=== PATIENT | female | born 1995 | race Caucasian/White ===

== ENCOUNTER 2016-12-07 14:11 | Emergency (ER) | payer OTHER ==
[~2016-12-07] VITALS: Ht 167.6 cm; Wt 127.3 kg
[~2016-12-07 14:11] MED LIST: DOCU-41 PO; FAMO20T PO; IBUP800T28 PO; ONDA8TAB10 PO
[2016-12-07 14:13] VITALS: BP 134/76; PULSE 109; RESP 20; O2SAT 97
[2016-12-07 15:15] LABS: Mean Corpuscular Hemoglobin 28.9 pg (27.0-35.0)
[2016-12-07 15:18] LABS: BASOPHILS % (AUTO) 0.2 % (0-3); EOSINOPHILS % (AUTO) 2.1 % (0-5); MONOCYTES % (AUTO) 5.3 % (4-12); Mean Corpuscular Volume 84.6 fL (81-100); NEUTROPHILS % (AUTO) 61.6 % (40-74); Platelet Count 321 bil/L (150-400)
[2016-12-07 16:18] LABS: Magnesium 1.9 mg/dL (1.6-2.6)
[2016-12-07 18:12] VITALS: BP 114/69; PULSE 98; O2SAT 97
--- NOTE | 2016-12-07 18:31 | ED.REPORT ---
HPI-Abd Pain F Under 40 Date of Service Dec 07, 2016 ED Provider: Connor Hu MD Pt is an otherwise healthy 21 year old female who presents to the ED complaining of intermittent upper abdominal pain onset 2 months ago. She c/o associated diarrhea (5x daily typically), nausea, lightheadedness, dizziness, and emesis when burping. The pt describes her emesis as "acid and chunky." She denies diarrhea today, hematochezia, and melena. The pt reports that she has presented to the [facility] for her symptoms and was diagnosed with acid reflux, however she was unable to get her prescription due to losing the paperwork. The pt denies menstruation, reporting that she takes control that prevents it. She states that no one else at home has diarrhea. Nursing Notes Stated Complaint: DIARRHEA,STOMACH PAIN,LIGHT HEADED,DIZZY,VOMITING Chief Complaint: Female Abdominal Pain Nursing Notes Reviewed: Yes Allergies: Coded Allergies: No Known Allergies (Verified Allergy, Unknown, 10/24/15) Scheduled Famotidine (Pepcid) 20 Mg Tablet 20 MG PO BID Omeprazole (Omeprazole) 20 Mg Capsule.dr 20 MG PO BID Scheduled PRN Docusate Sodium (Colace) 100 Mg Capsule 100 MG PO BID PRN PRN For Constipation Ibuprofen (Ibuprofen) 800 Mg Tablet 800 MG PO Q6H PRN PRN For Pain Ondansetron ODT (Ondansetron ODT) 8 Mg Tab.rapdis 8 MG PO QID PRN PRN For Nausea General Time Seen by MD: 18:21 Chief Complaint Abdominal pain Hx Obtained From: Patient Arrived By: Walk-in Onset Occurred: More than a week ago... (2 months) Symptom Duration: Intermittent Location: : Abdomen upper Quality: Painful Radiation: : Does not radiate Severity: Current: Moderate Severity: Maximum: Moderate Recent Healthcare: Recent doctor visit Similar Sx Previous: Yes Past Medical History Past Medical History anxiety Reports: Asthma Reports: Depression Past Surgical History T&A Smoking History Former Smoker Social History Alcohol Use: "Social" Drug Use: Denies drug use Other Social History: Good social support, Lives with children Ambulatory Status Independent Review of Systems GI: Reports: Abdominal pain, Diarrhea, Nausea, Vomiting, Denies: Hematochezia, Melena Complete sys rev & neg: except as marked. Neurologic: Reports: Dizziness, Lightheaded Physical Exam Initial Vital Signs Vital Signs (First) Date Time Temp Pulse Resp B/P Pulse Ox O2 Delivery O2 Flow Rate FiO2 12/07/16 14:13 36.3 109 20 134/76 97 Room Air Initial VS: Reviewed Head / Eyes: Atraumatic, Normocephalic Extremities: Vascular intact, Neuro intact Skin: Warm, Dry, No cyanosis Neurologic: Alert, Oriented Psychiatric: Mood/affect normal, Behavior normal General/Constitutional: Awake, Alert Respiratory / Chest: Atraumatic, Breath sounds NL, Breath sounds = bilat Cardiovascular: Heart rate NL, Regular rhythm Abdomen: Atraumatic, Soft, Non-tender, BS normoactive Back: Atraumatic, Full range of motion Rectum / Perineum: Atraumatic No blood present. Interpretation & Diagnostics Lab Results Interpretation Result Diagram: 12/07/16 1508 12/07/16 1508 Test 12/07/16 15:08 12/07/16 18:14 White Blood Count 8.4th/mm3 (3.8-10.1) Red Blood Count 4.56mil/mm3 (3.90-5.20) Hemoglobin 13.2g/dL (12.0-15.6) Hematocrit 38.6% (35.0-46.0) Mean Corpuscular Volume 84.6fL (81-100) Mean Corpuscular Hemoglobin 28.9pg (27.0-35.0) Mean Corpuscular Hemoglobin Concent 34.2% (32.0-37.0) Red Cell Distribution Width 13.0% (12.3-15.4) Platelet Count 321bil/L (150-400) Neutrophils (%) (Auto) 61.6% (40-74) Lymphocytes (%) (Auto) 30.6% (14-46) Monocytes (%) (Auto) 5.3% (4-12) Eosinophils (%) (Auto) 2.1% (0-5) Basophils (%) (Auto) 0.2% (0-3) Sodium Level 143mEq/L (134-144) Potassium Level 4.5mEq/L (3.5-5.2) Chloride Level 106mEq/L (97-108) Carbon Dioxide Level 24mmol/L (18-29) Blood Urea Nitrogen 11mg/dL (6-20) Creatinine 0.51mg/dL (0.57-1.00) Estimat Glomerular Filtration Rate 218mL/min (>59) Glucose Level 127mg/dL (60-99) Calcium Level 9.5mg/dL (8.5-10.1) Magnesium Level 1.9mg/dL (1.6-2.6) Total Bilirubin 0.5mg/dL (0.0-1.2) Aspartate Amino Transf (AST/SGOT) 14U/L (0-50) Alanine Aminotransferase (ALT/SGPT) 17U/L (0-32) Alkaline Phosphatase 83U/L (25-150) Total Protein 6.9g/dL (6.4-8.4) Albumin 4.5g/dL (3.4-5.0) Lipase 20U/L (13-60) Hold Urine Received (Received) US Abdominal Aorta IMPRESSION: Cholelithiasis and borderline gallbladder wall thickening however no other sonographic criteria for acute cholecystitis. Please correlate clinically and with LFTs. Coarse echogenic liver suggesting diffuse hepatocellular disease/fatty infiltration. Dictated by: Ang Santos M.D. on 12/07/2016 at 20:42 Exam Performed by: ED physician Re-Eval/Medical Decision Med Decision/Clinical Course Med Decision/Clinical Course: looks well, pain now better. Mild tachycardia at triage resolved. Source of Hx: Old records Re-Evaluation/Progress : Time of Eval: 20:15 Re-Evaluation/Progress Note: Pt rechecked. Performed rectal exam with pt's consent. Informed pt of plan for discharge. Pt understands and agrees with plan for discharge. F/U instructions and RTER warnings given. All questions addressed Counseled Regarding: Diagnosis, Lab results, Need for follow-up, When/why to return to ED Discharge & Departure Primary Impression: Epigastric abdominal pain Additional Impression: Biliary colic Disposition: Home Discharge Condition All VS Reviewed: Yes Condition: Stable Patient Instructions: Biliary Colic (ED) Additional Instructions: ED evaluation today included interview exam and labs. We did an ultrasound that showed gallstones, these may be the cause of your intermittent abdominal pain. Follow up with general surgery for consideration of gallbladder surgery. Take protonix twice daily in case this is acid reflux. Follow up with primary care soon also. May use tylenol as needed for pain. Ibuprofen will make reflux worse, don't use it. Avoid rich or fatty foods- this will increase gallbladder pain. Return to ED for severe pain, fevers or frequent vomiting. Referrals: Quentin Hunt MD (PCP) Cb Dickson MD Attestation Portions of this note were transcribed by Nicole Cortes. I, Dr. Hu personally performed the history, physical exam and medical decision-making; I reviewed and confirmed the accuracy of the information in the transcribed note. Signed by : David Moura, 12/07/16. copies to: Quentin Hunt MD, Donald L MD Dec 07, 2016 18:31 Nicole Mckeon Dec 07, 2016 18:39
[2016-12-07] MEDS ORDERED: OMEP20CA11 PO (20:22)
[2016-12-07 20:40] VITALS: BP 122/71; PULSE 90; RESP 16; O2SAT 99
--- NOTE | 2016-12-07 20:45 | DRSVH ---
PROCEDURE: US ABDOMEN, LIMITED ([id number]) INDICATIONS: epigastric pain , eval for gallstone disease TECHNIQUE: Real-time focused scanning was performed of the abdomen, with image documentation. COMPARISON: None. FINDINGS: Liver measures 17 cm in length. There is coarse diffuse echotexture in keeping with diffuse fatty infiltration. No intrahepatic ductal dilatation is seen. 1.9 cm gallstone is present. There is borderline gallbladder wall thickening measuring 3-4 mm. No pericholecystic or sonographic Valero si gn. No extrahepatic ductal dilatation. The pancreas is unremarkable. IMPRESSION: Cholelithiasis and borderline gallbladder wall thickening however no other sonographic criteria for a cute cholecystitis. Please correlate clinically and with LFTs. Coarse echogenic liver suggesting diffuse hepatocellular disease/fatty infiltration. Dictated by: Ang Santos M.D. on 12/07/2016 at 20:42 Approved by: Ang Santos M.D. on 12/07/2016 at 20:44
--- NOTE | 2016-12-08 09:42 | PCM.EDPN ---
ED Note Date of Service Dec 08, 2016 The patient's stool PCR came back for enteropathogenic Escherichia coli as well as C. difficile. The Escherichia coli will be treated symptomatically and the patient will have a prescription for Flagyl called in to treat her C. difficile infection. Mercedez Graves MD Dec 08, 2016 09:42
== END 2016-12-07 20:41 | disposition home or self-care (01) ==
LOC: SED 14:11
DX: K80.50 Calculus of bile duct without cholangitis or cholecystitis without obstruction (principal); A04.0 Enteropathogenic Escherichia coli infection; A04.7 Enterocolitis due to Clostridium difficile; J45.909 Unspecified asthma, uncomplicated; F41.8 Other specified anxiety disorders; Z87.891 Personal history of nicotine dependence

== ENCOUNTER 2016-12-11 11:01 | Day surgery (SDC) | payer OTHER ==
[~2016-12-11] VITALS: Ht 167.6 cm; Wt 127.3 kg
[2016-12-11] VITALS (11 sets, daily range): BP systolic 127–157; BP diastolic 67–92; PULSE 65–103; RESP 11–18; O2SAT 92–99
[~2016-12-11 11:01] MED LIST changes: +OMEP20CA11 PO
[2016-12-11] MEDS ORDERED: 0.9% Sodium Chloride 1,000 ML IV ONE (11:29)
--- NOTE | 2016-12-11 11:29 | ED.REPORT ---
HPI-Abd Pain F Under 40 Date of Service Dec 11, 2016 ED Provider: Steve Durand PA-C Stefan is otherwise healthy 21-year-old female presenting to emergency Department with a chief complaint of right upper quadrant pain. Patient reports sudden onset of a half over 10 pain in her right upper quadrant approximately one hour ago while she was talking on the phone, associated with nausea, dizziness. Denies , vomiting, diarrhea, melena, hematochezia, fever. See 3 days ago in this department reporting a 2 month history of intermittent abdominal pain associated with diarrhea, nausea, lightheadedness, dizziness. Workup at that time revealed gallstones as well as a stool culture positive for Escherichia coli and C. difficile, for which she was prescribed Flagyl, which she began taking today. Patient has appointment to be seen by GI on December 19. She is unsure of what she had for breakfast. Nursing Notes Stated Complaint: GALLBLADDER Chief Complaint: Female Abdominal Pain Nursing Notes Reviewed: Yes Allergies: Coded Allergies: No Known Allergies (Verified Allergy, Unknown, 10/24/15) Scheduled Famotidine (Pepcid) 20 Mg Tablet 20 MG PO BID Omeprazole (Omeprazole) 20 Mg Capsule.dr 20 MG PO BID Scheduled PRN Docusate Sodium (Colace) 100 Mg Capsule 100 MG PO BID PRN PRN For Constipation Ibuprofen (Ibuprofen) 800 Mg Tablet 800 MG PO Q6H PRN PRN For Pain Ondansetron ODT (Ondansetron ODT) 8 Mg Tab.rapdis 8 MG PO QID PRN PRN For Nausea General Time Seen by MD: 11:11 Chief Complaint Abdominal pain Past Medical History Past Medical History Notes: She is seen emergently, December 07, ultrasound positive for cholelithiasis and borderline thickened gallbladder wall, with outpatient surgical follow-up planned at that time for biliary colic Past Medical History anxiety Cholelithiasis diagnosed 12/07/2016 Reports: Asthma Reports: Depression Past Surgical History T&A Smoking History Former Smoker Social History Alcohol Use: "Social" Drug Use: Denies drug use Other Social History: Good social support, Lives with children Ambulatory Status Independent Review of Systems Review of Systems Note: Negative unless stated otherwise in history of present illness Physical Exam General: Well appearing, well developed, well nourished, no acute distress. Head: Atraumatic, normocephalic. Eyes: No scleral icterus or injection. No discharge. Vision grossly intact. ENT: Voice clear, hearing grossly intact. Respiratory: Regular rate and rhythm. No respiratory distress. No increased work of breathing, speaks in complete sentences. Cardiovascular: Regular rate and rhythm, without murmur, gallop or rub. No pedal edema. Gastrointestinal: Obese abdomen mild to moderately tender in right upper quadrant without rebound. Negative Valero sign. Bowel sounds normoactive. Skin: Warm and dry. Neurological: Grossly nonfocal. Psychological: Alert and oriented. Speech appropriate, linear and logical. Behavior appropriate. Initial Vital Signs Vital Signs (First) Date Time Temp Pulse Resp B/P Pulse Ox O2 Delivery O2 Flow Rate FiO2 12/11/16 11:03 36.8 103 14 137/85 99 Room Air Mild tachycardia Interpretation & Diagnostics Interpretation & Diagnostics: See recent ultrasound 12/07/2016 Lab Results Interpretation Result Diagram: 12/11/16 1129 12/11/16 1129 Test 12/11/16 11:29 12/11/16 12:35 White Blood Count 7.6th/mm3 (3.8-10.1) Red Blood Count 4.55mil/mm3 (3.90-5.20) Hemoglobin 13.2g/dL (12.0-15.6) Hematocrit 38.6% (35.0-46.0) Mean Corpuscular Volume 84.8fL (81-100) Mean Corpuscular Hemoglobin 29.0pg (27.0-35.0) Mean Corpuscular Hemoglobin Concent 34.2% (32.0-37.0) Red Cell Distribution Width 13.2% (12.3-15.4) Platelet Count 279bil/L (150-400) Neutrophils (%) (Auto) 62.6% (40-74) Lymphocytes (%) (Auto) 28.4% (14-46) Monocytes (%) (Auto) 6.1% (4-12) Eosinophils (%) (Auto) 2.5% (0-5) Basophils (%) (Auto) 0.1% (0-3) Sodium Level 140mEq/L (134-144) Potassium Level 4.0mEq/L (3.5-5.2) Chloride Level 106mEq/L (97-108) Carbon Dioxide Level 19mmol/L (18-29) Blood Urea Nitrogen 8mg/dL (6-20) Creatinine 0.49mg/dL (0.57-1.00) Estimat Glomerular Filtration Rate 228mL/min (>59) Glucose Level 103mg/dL (60-99) Calcium Level 8.7mg/dL (8.5-10.1) Total Bilirubin 0.4mg/dL (0.0-1.2) Aspartate Amino Transf (AST/SGOT) 18U/L (0-50) Alanine Aminotransferase (ALT/SGPT) 18U/L (0-32) Alkaline Phosphatase 74U/L (25-150) Total Protein 7.0g/dL (6.4-8.4) Albumin 4.0g/dL (3.4-5.0) Lipase 22U/L (13-60) Urine Color Straw (YELLOW) Urine Appearance Hazy (CLEAR,HAZY) Urine pH 5.5 (5.0-8.0) Urine Specific [place] 1.020 (1.003-1.035) Urine Protein Negativemg/dL (NEG,TRACE) Urine Glucose (UA) Negativemg/dL (NEGATIVE) Urine Ketones Negativemg/dL (NEGATIVE) Urine Occult Blood Negative (NEGATIVE) Urine Nitrite Negative (NEGATIVE) Urine Bilirubin Negative (NEGATIVE) Urine Urobilinogen Normalmg/dL (NORMAL) Urine Leukocyte Esterase Trace (NEGATIVE) Urine RBC 0-2/hpf (0-2) Urine WBC 0-5/hpf (0-5) Urine Epithelial Cells Occasional/hpf (NONE-MOD) Urine Crystals None seen (NONE SEEN) Urine Bacteria Moderate/hpf (NONE-FEW) Urine Hyaline Casts None/lpf (NONE) Urine Granular Casts None seen (NONE SEEN) Urine Waxy Casts None seen (NONE SEEN) Urine Red Blood Cell Casts None seen (NONE SEEN) Urine White Blood Cell Casts None seen (NONE SEEN) Urine Mucus None seen (None Seen) Urine Trichomonas None seen (NONE SEEN) Urine Yeast None (NONE SEEN) Urinalysis Comment None Urine Culture Reflexed Indicated Lab Results Interpretation: CBC normal CMP normal Lipase normal negative Re-Eval/Medical Decision Med Decision/Clinical Course Otherwise healthy 21-year-old female presents to emergency department with right upper quadrant pain. Diagnosed roughly 3 days ago in this department with gallstones as well as C. difficile colitis. Patient reports sudden onset of right upper quadrant pain approximately one hour ago, associated with nausea and dizziness. She also reports initiating treatment with Flagyl today. Denies other symptoms. Physical examination reveals mild tachycardia as well as mild right upper quadrant pain without Valero sign. Otherwise normal. Labs drawn for CBC, CMP, lipase which returned normal. Consulted with Dr. Dickson, patient was seen by co founder and president, and was transferred to surgery from the emergency department in stable condition. Source of Hx: Old records Consultation #1: Referral / Consult Name: Cb Dickson MD Call Returned at: 11:39 [employer] Plant Manager: Will see patient Consultation #2: Consulted With: Surgeon (Dr. Lange) Call Returned at: 13:27 Note: Patient was seen and assessed, will be taken to day surgery directly from the emergency department. No additional treatment in emergency Department is requested. Differential Diagnosis: Positive: Cholecystitis, Cholelithiasis, Negative: Acute coronary syndrome, Appendicitis, Cholangitis, Esophageal rupture, Pancreatitis, Pyelonephritis Discharge & Departure Primary Impression: Cholecystitis Referrals: Quentin Hunt MD (PCP) Attending Statment This is a patient initially seen by the mid-level provider, but I personally interviewed and examined the patient. I reviewed the radiographs and laboratory studies. This is a patient returns with, right upper quadrant pain with known cholelithiasis and is in significant discomfort. Surgeries consult, came and saw the patient and is taking the patient to the OR for further management. Steve Durand PA-C Dec 11, 2016 11:29 Aleksandar Dorman MD Dec 11, 2016 13:47
[2016-12-11 12:36] LABS: BASOPHILS % (AUTO) 0.1 % (0-3); EOSINOPHILS % (AUTO) 2.5 % (0-5); MONOCYTES % (AUTO) 6.1 % (4-12); Mean Corpuscular Volume 84.8 fL (81-100); NEUTROPHILS % (AUTO) 62.6 % (40-74); Platelet Count 279 bil/L (150-400)
[2016-12-11 12:59] LABS: APPEARANCE,URINE HAZY (CLEAR,HAZY); COLOR,URINE STRAW (YELLOW); PH,URINE 5.5 (5.0-8.0)
[2016-12-11 13:00] LABS: OCCULT BLOOD,URINE NEGATIVE (NEGATIVE); UROBILINOGEN,URINE NORMAL (NORMAL)
[2016-12-11] MEDS ORDERED: Lactated Ringer's 1,000 ML IV ONE ×3 (13:32→18:30)
--- NOTE | 2016-12-11 13:32 | PCM.HPANE ---
Patient Data Surgeon Admitting Provider: Attending Provider: Primary Care Physician:Quentin Hunt MD Other Provider: Reason for Visit Gallbladder Ht/WT & BMI Height (Feet): 5 Height (Inches): 6 Weight (Kilograms): 127.27 Body Mass Index Allergies Coded Allergies: No Known Allergies (Verified Allergy, Unknown, 10/24/15) Diabetes History Hx Diabetes?: No MRSA MRSA: No Medications Active Scripts Omeprazole 20 Mg Capsule.dr20 Mg PO BID #60 CAPSULE Ref 0 Prov:Connor Hu MD 12/07/16 Docusate Sodium (Colace)100 Mg [id number] Mg PO BID PRN For Constipation #10 CAPSULE Ref 3 Prov:Luis A Branch MD 09/23/15 Ibuprofen 800 Mg Cozsis176 Mg PO Q6H PRN For Pain #20 TABLET Ref 3 Prov:Luis A Branch MD 09/23/15 Ondansetron ODT 8 Mg Tab.rapdis8 Mg PO QID PRN For Nausea #14 TABLET Prov:Stevan Hua MD 04/13/15 Famotidine (Pepcid)20 Mg [id number] Mg PO BID #30 TABLET Prov:Stevan Hua MD 04/13/15 History History of ENT Problems?: No Hx of Heart Problems?: No Cardiovascular History: Denies:: Chest Pain Congestive Heart Failure Hypertension Hx of Respiratory Problem?: Yes Respiratory History: Denies:: Tuberculosis Hx Neurologic Problems?: No Hx of GI Problems?: No Hx of Problems?: No HX of Peritoneal Dialysis: No Female Hx: Positive for:: Currently Skin History: Denies:: History Skin Disorders? Pressure Ulcers Hx Musculoskeletal Problems?: No Hx of Psycho/Social Problems?: Yes Psycho Social History: Positive for:: Bipolar Disorder Hx Surgeries?: Yes (T&A) Hx Any Other Health Problems?: No Hx Diabetes: No Hx Alcohol Use: NoHx Substance Use: No Smoking Status: Former Smoker Have You Smoked inLast 12 mo: Yes Stop/Bang Risk Assessment Category Category 1A: Patient has history of documented sleep apnea, and HAS NOT received any narcotic, sedative or anesthesia administration during this stay. Category 1B: Patient has history of documented sleep apnea, and HAS received any narcotic , sedative or anesthesia administration during this stay Category 2: Patient has SUSPECTED Obstructive Sleep Apnea, and HAS received any narcotic , sedative or anesthesia administration during this stay. Category 3: Patient has SUSPECTED Obstructive Sleep Apnea and HAS NOT received narcotic, sedative or anesthesia administration during this stay. Category 4: Outpatient in Procedural Areas with known sleep apnea or who screen positive for High Risk via the STOP/BANG questionnaire. Exam Exam Vital Signs Vital Signs Date Time Temp Pulse Resp B/P Pulse Ox O2 Delivery O2 Flow Rate FiO2 12/11/16 11:03 36.8 103 14 137/85 99 Room Air Meds/Labs/Diagnostics Admission Meds Current Medications Sodium Chloride (Normal Saline) 1,000 ml @ 0 mls/hr Q0M ONCE IV Last administered on 12/11/16 11:44; Start 12/11/16 at 11:29; Stop 12/11/16 at 11:31; Status DC Ondansetron HCl (Zofran ODT) 8 mg ONCE ONCE PO Last administered on 12/11/16 11:44; Start 12/11/16 at 11:30; Stop 12/11/16 at 11:31; Status DC Acetaminophen (Tylenol) 975 mg ONCE ONCE PO Last administered on 12/11/16 11: 44; Start 12/11/16 at 11:30; Stop 12/11/16 at 11:31; Status DC Labs Test 12/11/16 11:29 12/11/16 12:35 White Blood Count 7.6th/mm3 (3.8-10.1) Red Blood Count 4.55mil/mm3 (3.90-5.20) Hemoglobin 13.2g/dL (12.0-15.6) Hematocrit 38.6% (35.0-46.0) Mean Corpuscular Volume 84.8fL (81-100) Mean Corpuscular Hemoglobin 29.0pg (27.0-35.0) Mean Corpuscular Hemoglobin Concent 34.2% (32.0-37.0) Red Cell Distribution Width 13.2% (12.3-15.4) Platelet Count 279bil/L (150-400) Neutrophils (%) (Auto) 62.6% (40-74) Lymphocytes (%) (Auto) 28.4% (14-46) Monocytes (%) (Auto) 6.1% (4-12) Eosinophils (%) (Auto) 2.5% (0-5) Basophils (%) (Auto) 0.1% (0-3) Sodium Level 140mEq/L (134-144) Potassium Level 4.0mEq/L (3.5-5.2) Chloride Level 106mEq/L (97-108) Carbon Dioxide Level 19mmol/L (18-29) Blood Urea Nitrogen 8mg/dL (6-20) Creatinine 0.49mg/dL (0.57-1.00) Estimat Glomerular Filtration Rate 228mL/min (>59) Glucose Level 103mg/dL (60-99) Calcium Level 8.7mg/dL (8.5-10.1) Total Bilirubin 0.4mg/dL (0.0-1.2) Aspartate Amino Transf (AST/SGOT) 18U/L (0-50) Alanine Aminotransferase (ALT/SGPT) 18U/L (0-32) Alkaline Phosphatase 74U/L (25-150) Total Protein 7.0g/dL (6.4-8.4) Albumin 4.0g/dL (3.4-5.0) Lipase 22U/L (13-60) Urine Color Straw (YELLOW) Urine Appearance Hazy (CLEAR,HAZY) Urine pH 5.5 (5.0-8.0) Urine Specific [place] 1.020 (1.003-1.035) Urine Protein Negativemg/dL (NEG,TRACE) Urine Glucose (UA) Negativemg/dL (NEGATIVE) Urine Ketones Negativemg/dL (NEGATIVE) Urine Occult Blood Negative (NEGATIVE) Urine Nitrite Negative (NEGATIVE) Urine Bilirubin Negative (NEGATIVE) Urine Urobilinogen Normalmg/dL (NORMAL) Urine Leukocyte Esterase Trace (NEGATIVE) Urine RBC 0-2/hpf (0-2) Urine WBC 0-5/hpf (0-5) Urine Epithelial Cells Occasional/hpf (NONE-MOD) Urine Crystals None seen (NONE SEEN) Urine Bacteria Moderate/hpf (NONE-FEW) Urine Hyaline Casts None/lpf (NONE) Urine Granular Casts None seen (NONE SEEN) Urine Waxy Casts None seen (NONE SEEN) Urine Red Blood Cell Casts None seen (NONE SEEN) Urine White Blood Cell Casts None seen (NONE SEEN) Urine Mucus None seen (None Seen) Urine Trichomonas None seen (NONE SEEN) Urine Yeast None (NONE SEEN) Urinalysis Comment None Urine Culture Reflexed Indicated Plan Impression Patient chart reviewed, patient interviewed and anesthestic plan with risks, benefits, and alternatives discussed, and informed consent obtained. Willis Ayala MD Dec 11, 2016 13:32
[2016-12-11] MEDS ORDERED: HYDROmorphone 1 mg/mL Inj ONE (13:38)
[2016-12-11] MEDS ORDERED: Rocuronium 10 mg/mL 5 mL Inj ONE (13:38)
[2016-12-11] MEDS ORDERED: Ondansetron 2 mg/mL 2 mL Inj ONE (13:38)
[2016-12-11] MEDS ORDERED: Glycopyrrolate 0.2 MG/ML 1mL Inj ONE (13:38)
[2016-12-11] MEDS ORDERED: Succinylcholine Chloride 20 mg/mL 5 mL Inj ONE (13:38)
[2016-12-11] MEDS ORDERED: Propofol 10,000 mCg/mL 20 mL Inj ONE (13:38)
[2016-12-11] MEDS ORDERED: Dexamethasone 4 mg/mL Inj ONE (13:38)
[2016-12-11] MEDS ORDERED: fentaNYL-PF 50 mCg/mL 2 mL Inj ONE (13:38)
[2016-12-11] MEDS ORDERED: Neostigmine 1 mg/mL 10 mL Inj ONE (13:38)
[2016-12-11] MEDS ORDERED: HYDROmorphone 0.5 mg/0.5 mL iSecure Syringe IVPUSH PRN (13:50)
[2016-12-11] MEDS ORDERED: Ondansetron 2 mg/mL 2 mL Inj IVPUSH ONE (13:50)
--- NOTE | 2016-12-11 14:30 | PCM.HPSURG ---
Subjective Date of Service: Dec 11, 2016 Referring Provider: Admitting Physician: Primary Care Physician: Quentin Hunt MD Attending Physician: Cb Dickson MD Chief Complaint Abdominal pain History of Present Illness Ms. Carias is a 21 year old female with history of c.diff, asthma, and depression who presents with 2 months of intermittent RUQ pain. The patient reports that approximately 8 weeks ago she was seen in the [facility] ED after suddenly developing severe RUQ pain and nausea. Her symptoms improved with pain medications and she was not offered a diagnosis. Since that time, however, she has experienced increasingly more frequent and painful episodes of right upper quadrant abdominal pain. She describes that the pain is burning and sharp, localized only to RUQ without radiation, starts suddenly, lasts for several hours, and then resolves spontaneously. She describes a strong relation to food, noting that any PO intake seems to trigger an episode of pain , but sometimes the pain will start in the absence of PO intake. Even liquid intake seems to cause pain. She typically experiences nausea but denies any vomiting. She has had no associated fevers, chills, urinary changes, or jaundice. She presented to the ED 2 days ago with an episode of severe pain. An US demonstrated a 1.8 cm gallstone. The plan was made for follow up to discuss elective cholecystectomy in the outpatient setting. However, she returns today after developing 10/10 pain this morning, which she describes as one of her worst episodes. Of note, the patient has a history of c.diff diagnosed approximately 2 years ago after taking antibiotics for a UTI during her . She was treated, but has experienced intermittent diarrhea since then. For the past 3 weeks, however, she has had profuse diarrhea, reports >5 episodes of loose stools per day. She reiterates that she had numerous episodes of RUQ pain prior to the start of diarrhea. She also states her pain is distinctly different than the abdominal pain she experienced with c.diff at the time of her first diagnosis. She was found to be c.diff positive during her most recent ED visit and has been started on PO flagyl. She has not had an episode of loose stool for the past 48 hours. Allergy Allergies: Coded Allergies: No Known Allergies (Verified Allergy, Unknown, 10/24/15) Medications Home medications She takes an antidepressant daily, but cannot remember the name of this medication. Past Surgical History Operations: Tonsillectomy as a child Social History Occupation: [employer] member Hx Alcohol Use: Yes Hx Substance Use: No Hx Tobacco Use: Yes PMH HEENT History History of ENT Problems?: No Cardiovascular History History of Heart Problems?: No Cardiovascular History: Denies:: Chest Pain Congestive Heart Failure Hypertension Respiratory History of Respiratory Problem: Yes Respiratory History: Positive for:: Asthma Denies:: Tuberculosis Neurological History Hx Neurologic Problems?: No Gastrointestinal History HX of GI Problems?: No Genitourinary History Hx of Gu Problems?: No Female/Male History Reproductive History Female: Positive for: Currently ? Skin History Skin History: Denies:: History Skin Disorders? Pressure Ulcers Musculoskeletal History Hx Musculoskeletal Problems?: No Psycho Social History Hx of Psycho/Social Problems?: Yes Psycho Social History: Positive for:: Bipolar Disorder Hx Depression Other History Hx Any Other Health Problems?: No Diabetes: No Social History Hx Alcohol Use: NoHx Substance Use: No Smoking Status: Current Every Day Smoker (Smokes 1/2 ppd) Living Arrangement: with Family Family History Family History: The patient's mother had her gallbladder removed. There is no known family history of GI malignancy. H&P Surgical Exam Exam General: Alert, Oriented X3, Cooperative, No Acute Distress Neck: Supple, Full Range of Motion Lungs: Normal Air Movement Heart: Exam Unremarkable Abdomen: Other (Obese. Diffusely tender to deep palpation with the worst pain in the RUQ. Negative Peralta. No rebound or guarding. No incisions, hernias, or organomegaly appreciated. ) Extremities: Warm Neuro: Grossly Neurologically Intact Assessment & Plan Assessment This is a 21 year old female who presents with recurrent RUQ pain, found to have cholelithiasis and recurrent c.diff infection. At this time, her pain is most likely biliary in origin given the post-prandial nature of her symptoms, and the lack of association between her pain and the diarrhea. I do not think c.diff can explain her symptoms and RUQ tenderness. Therefore, we have recommended her gallbladder be removed. Plan: After a discussion of the risks, benefits, and alternatives, the patient has elected to proceed to the operating room for a cholecystectomy. She understands the risks including but not limited to bleeding, infection, damage to adjacent structure, need for an open procedure, and the potential untoward effects of anesthesia. She will remain NPO and we will proceed to the operating room today. London Lange MD Dec 11, 2016 14:29
[2016-12-11] MEDS ORDERED: Bupivacaine-MPF 0.5% 30 mL Inj INFILTRATE ONE (15:18)
[2016-12-11] MEDS ORDERED: Iopamidol-300 50 mL Inj IV ONE (15:18)
[2016-12-11] MEDS ORDERED: Lactated Ringer's 1,000 ML IV SCH (15:26)
[2016-12-11] MEDS ORDERED: Lactated Ringer's 500 ML IV PRN (15:26)
[2016-12-11] MEDS ORDERED: Albuterol-Ipratropium 3 mL Inhalation Solution NEB PRN (15:30)
[2016-12-11] MEDS ORDERED: MetoCLOpramide 5 mg/mL 2 mL Inj IVPUSH PRN (15:30)
[2016-12-11] MEDS ORDERED: Ondansetron 2 mg/mL 2 mL Inj IVPUSH PRN (15:30)
[2016-12-11] MEDS ORDERED: EPHEDrine Sulfate 50 mg/mL Inj IVPUSH PRN (15:30)
[2016-12-11] MEDS ORDERED: Phenylephrine 10,000 mCg/mL Inj IVPUSH PRN (15:30)
[2016-12-11] MEDS ORDERED: fentaNYL-PF 50 mCg/mL 2 mL Inj IVPUSH PRN (15:30)
[2016-12-11] MEDS ORDERED: Dexamethasone 4 mg/mL Inj IVPUSH PRN (15:30)
--- NOTE | 2016-12-11 17:32 | DRSVH ---
PROCEDURE: X-RAY OPERATIVE CHOLANGIOGRAM ([id number]) INDICATIONS: CHOLECYSTITIS COMPARISON: None. FINDINGS: Biliary ducts: The surgeon injected contrast into the biliary ducts after cannulation of the cystic duct stump. Visualized intra- and extrahepatic bile ducts are normal in caliber, without strictures. No intraluminal filling defects to suggest retained ductal stones or sludge. No evidence for iatro genic ductal injury. Duodenum: Contrast flows promptly through the sphincter of Oddi into the duodenum, which appears nor mal in caliber. IMPRESSION: Radiographically normal cine clip of biliary duct injection. Dictated by: Osbaldo Yousif M.D. on 12/11/2016 at 17:29 Approved by: Osbaldo Yousif M.D. on 12/11/2016 at 17:30
[2016-12-11] MEDS ORDERED: oxyCODONE-Acetamin 5-325 mg Tablet PO PRN (18:00)
--- NOTE | 2016-12-11 18:01 | PCM.DISURG ---
Surgical Discharge Instruction Date of Service Dec 11, 2016 Dates of Hospitalization Date of Hospital Admission Providers Admitting Physician: Primary Care Physician: Quentin Hnut MD Attending Physician: Cb Dickson MD Diet Discharge Diet: No restrictions Activity Discharge Activity-General: Try not to overdue, Activity as pain allows, No lifting >15 pounds for 2 weeks, No driving while taking narcotic Dressing and Incisional Care Dressing Care: Allow Steri Stripes to fall off, Remove outer dressing after 24 hrs Hygiene: May shower after (24 hours), DO NOT soak incision under water, NO bathtub, hot tub or whirlpool Follow Up Plan Follow Up Plan Follow up in the general surgery clinic in 2-4 weeks. Call sooner if you have any questions or concerns. Continue taking the metronidazole (flagyl) for you c.diff infection as prescribed. Call your provider for: Fever, Chills, Increasing abdominal pain, Nausea, Vomiting, Wound redness, Discharge @ incision, pus discharge London Lange MD Dec 11, 2016 18:01
--- NOTE | 2016-12-11 18:02 | PCM.ANEP1 ---
Post Anesthesia PACU Phase 1 Assessment Vital Signs Vital Signs Date Time Temp Pulse Resp B/P Pulse Ox O2 Delivery O2 Flow Rate FiO2 12/11/16 13:59 77 18 132/79 98 Room Air 12/11/16 11:03 36.8 103 14 137/85 99 Room Air Anesthetic Administered: GA Level of Alertness: Awake, talking PACHECO's with Equal Strength: Yes Pain: No Nausea or Vomiting: No CV Function & Hydration Stable: Yes Airway Device: none Oxygen Delivery: Simple Mask Lungs: Normal Air Movement Dermatome Level: Full Sensation PACU Phase 2 Assessment Complications: No Follow up Care: No Patient Instructions Provided: N/A Willis Ayala MD Dec 11, 2016 18:02
[2016-12-11] MEDS: HYDROmorphone 1 mg/mL Inj IVPUSH PRN ×2 (18:18→18:28)
[2016-12-11] MEDS ORDERED: FLUO20CA25 PO (18:32)
[2016-12-11] MEDS ORDERED: METR500T PO (18:33)
--- NOTE | 2016-12-11 21:54 | OP ---
[address] [address] OPERATIVE REPORT PATIENT: MIK URBINA : 1995 MR#: [id number] ADMIT: 12/11/2016 JOB ID: [id number] DATE OF SURGERY: 12/11/2016 PREOPERATIVE DIAGNOSIS(ES): Cholelithiasis, possible cholecystitis. POSTOPERATIVE DIAGNOSIS(ES): Acute and chronic cholecystitis from cholelithiasis. PROCEDURE PERFORMED: Laparoscopic cholecystectomy with intraoperative cholangiogram. SURGEON: Dr. Cb Dickson. BOOK MENDER: London Lal MD and Quentin Peguero MS3. INDICATIONS: The patient is a 21-year-old lady with chronic C. diff. who presented with two months of intermittent right upper quadrant pain. She was recently diagnosed with gallstones and was asked to follow with Surgery. Because of worsening abdominal pain, she came back and we were asked to see her in consultation. After discussing the risks, benefits, and alternatives, she was brought to the operating room for laparoscopic cholecystectomy with cholangiogram. PROCEDURE DETAILS: She was placed in supine position and underwent smooth induction of general anesthesia. Abdomen was prepped and draped in the usual sterile fashion. Surgical time-out was undertaken using safety checklist, and all were in agreement. I began by making a horizontal incision in the supraumbilical location and entered the abdomen using open Maribeth technique and Optiview trocars. We did encounter quite a bit of difficulty getting into the abdominal cavity given the thickness of her abdominal wall. I 1st put in a 5 and then up-sized to a 12 and then placed three 5 mm ports in the right upper quadrant and epigastrium under direct vision. I then retracted the gallbladder cephalad and to the right after taking down the adhesions of the omentum to it. We then dissected the triangle of Calot anteriorly and posteriorly. We did encounter some bleeding getting the cystic artery dissected, but were able to isolate it and clip it. I then dissected the cystic duct and clipped it on the specimen side and obtained a cholangiogram which showed normal anatomy with no filling defects. I then clipped the cystic duct doubly on the patient's side and divided it. I then dissected the gallbladder off the liver bed with good hemostasis. I placed it in an EndoCatch bag and irrigated and suctioned out all the fluid from the right upper quadrant and removed the gallbladder with an EndoCatch bag through the supraumbilical port site. We then closed the supraumbilical port site fascia with [id number] 0-Vicryl suture using an Endo closure device. The skin was reapproximated with 4-0 Monocryl. Steri-Strips and sterile dressing were applied. Patient was recovered from anesthesia and was taken to the recovery room in stable condition.
--- NOTE | 2016-12-13 13:10 | PATH ---
SURGICAL PATHOLOGY Attending Physician:Cb Dickson MD CASE STATUS: Signed Out PATIENT NAME: MIK URBINA PID: [id number] : 1995 DATE COLLECTED:12/11/2016 00:00 SPECIMEN: Gallbladder CLINICAL HISTORY: CHOLECYSTITIS 1). GALLBLADDER FINAL DIAGNOSIS: 1.GALLBLADDER, LAPAROSCOPIC CHOLECYSTECTOMY: CHRONIC CHOLECYSTITIS, CHOLESTEROLOSIS, AND CHOLELITHIASIS. ICD10 K80.6 GROSS DESCRIPTION: The specimen is received in one formalin filled container labeled with the patient's name, sublabeled "L. bladder" and consists of an intact 8.0 x 3.5 x 3.0 CM gallbladder. The serosa is smooth. The wall is 0.2-0.3 CM in thickness. The mucosa is a yellow-green in color. The lumen contains a dark green mucoid material and 5 green swenson calculi which range in size from 0.2-0.5 CM 5 solar manufacturer's representative sections are submitted in one cassette. 12/12/2016DC MICRO DESCRIPTION: See diagnosis. ICD-9 CODES: CPT CODES: 1: 30818 Electronically Signed Out Carlie Alejo MD Formerly [facility] [address], [place] [address] Technical component performed at [facility], [address] [place] [address] Ave[address], [place], [address]
== END 2016-12-11 23:59 | disposition home or self-care (01) ==
LOC: SED 11:01 → ORA 13:37
PROVIDERS: ATTEND Student in an Organized Health Care Education/Training Program
DX: K80.10 Calculus of gallbladder with chronic cholecystitis without obstruction (principal); A04.7 Enterocolitis due to Clostridium difficile; J45.909 Unspecified asthma, uncomplicated; F41.8 Other specified anxiety disorders; F17.210 Nicotine dependence, cigarettes, uncomplicated
CPT/HCPCS: 36415; 47563; 74300; 80053; 81000; 81025; 83690; 85025; 87086; 87088; 96360; 96361; 99285; J0330; J0690; J1100; J1170; J1885; J2250; J2405; J2710; J3010; J7030; J7120; Q9967

== ENCOUNTER 2016-12-17 07:30 | Emergency (ER) | payer OTHER ==
[~2016-12-17] VITALS: Ht 167.6 cm; Wt 127.3 kg
[~2016-12-17 07:30] MED LIST changes: +FLUO20CA25 PO; +METR500T PO
[2016-12-17 07:39] VITALS: BP 106/74; PULSE 106; RESP 18; O2SAT 99
--- NOTE | 2016-12-17 07:45 | ED.REPORT ---
HPI-Abd Pain F Under 40 Date of Service Dec 17, 2016 ED Provider: Cyrus Rojas Patient is a 21 year old female who presents to the ED complaining of hematuria onset this morning. Associated symptoms include R sided abdominal pain and diffuse back pain. She denies dysuria, diarrhea, or any other symptoms. She had a cholecystectomy 1 week ago. She is taking Metronidazole for C-diff, oxycodone, and fluoxetine. Patient does not have periods due to a Mirena IUD. Nursing Notes Stated Complaint: BLOOD IN URINE Chief Complaint: Female Abdominal Pain Nursing Notes Reviewed: Yes Allergies: Coded Allergies: No Known Allergies (Verified Allergy, Unknown, 10/24/15) Scheduled Famotidine (Pepcid) 20 Mg Tablet 20 MG PO BID Fluoxetine (Fluoxetine) 20 Mg Capsule 20 MG PO DAILY Metronidazole (Flagyl) 500 Mg Tablet 500 MG PO Q8H Omeprazole (Omeprazole) 20 Mg Capsule.dr 20 MG PO BID Scheduled PRN Docusate Sodium (Colace) 100 Mg Capsule 100 MG PO BID PRN PRN For Constipation Ibuprofen (Ibuprofen) 800 Mg Tablet 800 MG PO Q6H PRN PRN For Pain Ondansetron ODT (Ondansetron ODT) 8 Mg Tab.rapdis 8 MG PO QID PRN PRN For Nausea General Time Seen by MD: 07:44 Chief Complaint Other (Hematuria ) Hx Obtained From: Patient Arrived By: Walk-in Sudden in Onset?: Yes Onset Occurred: 1 - 4 hours ago Symptom Duration: Since onset Recent Healthcare: Previous surgery Past Medical History Past Medical History anxiety C Diff Colitis Bipolar Reports: Asthma Reports: Depression Past Surgical History T&A Reports: Cholecystectomy Smoking History Current Every Day Smoker Social History Alcohol Use: "Social" Drug Use: Denies drug use Other Social History: Good social support, Lives with children Ambulatory Status Independent Review of Systems GI: Reports: Abdominal pain, Denies: Diarrhea Female: Reports: Hematuria, Denies: Dysuria Musculoskeletal: Reports: Back pain Complete sys rev & neg: except as marked. Physical Exam Initial Vital Signs Vital Signs (First) Date Time Temp Pulse Resp B/P Pulse Ox O2 Delivery O2 Flow Rate FiO2 12/17/16 07:39 36.7 106 18 106/74 99 12/17/16 09:55 Room Air Initial VS: Reviewed, Vital signs abnormal Head / Eyes: Atraumatic, Normocephalic Neck: Full range of motion Skin: Warm, Dry Neurologic: Alert, Oriented, Nonfocal Psychiatric: Mood/affect normal, Behavior normal, Normal thought content General/Constitutional: Awake, Alert, No acute distress Appearance / Presentation: Positive: Obese Respiratory / Chest: Atraumatic, Breath sounds NL, Breath sounds = bilat, No respiratory distress Cardiovascular: Heart rate NL, Regular rhythm, Heart sounds NL Abdomen: Soft, No guarding, No rebound Laparoscopic incisions are clean, dry, and intact mild RUQ tenderness Back: No CVA tenderness Interpretation & Diagnostics Lab Results Interpretation Test 12/17/16 08:10 Urine Color Dark yellow (YELLOW) Urine Appearance Hazy (CLEAR,HAZY) Urine pH 6.0 (5.0-8.0) Urine Specific [place]stone 1.025 (1.003-1.035) Urine Protein Negativemg/dL (NEG,TRACE) Urine Glucose (UA) Negativemg/dL (NEGATIVE) Urine Ketones Negativemg/dL (NEGATIVE) Urine Occult Blood Negative (NEGATIVE) Urine Nitrite Negative (NEGATIVE) Urine Bilirubin Negative (NEGATIVE) Urine Urobilinogen Normalmg/dL (NORMAL) Urine Leukocyte Esterase Trace (NEGATIVE) Urine RBC 0-2/hpf (0-2) Urine WBC 0-5/hpf (0-5) Urine Epithelial Cells Occasional/hpf (NONE-MOD) Urine Crystals None seen (NONE SEEN) Urine Bacteria Moderate/hpf (NONE-FEW) Urine Hyaline Casts None/lpf (NONE) Urine Granular Casts None seen (NONE SEEN) Urine Waxy Casts None seen (NONE SEEN) Urine Red Blood Cell Casts None seen (NONE SEEN) Urine White Blood Cell Casts None seen (NONE SEEN) Urine Mucus None seen (None Seen) Urine Trichomonas None seen (NONE SEEN) Urine Yeast None (NONE SEEN) Urinalysis Comment None Urine Culture Reflexed Indicated US Renal/Urinary Tract US completely normal. No stones or inflamation. Exam Performed by: Allied health pract Re-Eval/Medical Decision Med Decision/Clinical Course Med Decision/Clinical Course: Patient complains of hematuria and flank pain without dysuria. Initial bedside urine dip shows blood and leukocyte esterase. Formal urine is sent and ultimately unremarkable. Also there is no evidence of bilirubin or urobilinogen which would suggest hepatic congestion or biliary obstruction. Ultrasound was reassuring. Patient will be discharged. Return and follow-up precautions given. Re-Evaluation/Progress #1: Time of Eval: 09:06 )( Re-Eval Abdomen: Soft Re-Evaluation/Progress Note: Rechecked pt who is still in pain but declines any more medications. Re-Evaluation/Progress #2: Time of Eval: 09:35 Re-Evaluation/Progress Note: Rechecked pt. Discussed US results. Discussed plan for discharge. Patient understands and agrees with plan. All questions addressed at this time. Counseled Regarding: Diagnosis, Lab results, Need for follow-up, When/why to return to ED Discharge & Departure Primary Impression: Hematuria of undiagnosed cause Disposition: Home Discharge Condition All VS Reviewed: Yes Condition: Stable Additional Instructions: Your urinalysis does not show any signs of infection or bleeding. Your ultrasound was reassuring. There is no evidence of a kidney stone. Follow-up with your surgeon and primary care doctor as needed. The ER is always available for any emergent medical concerns Referrals: Quentin Hunt MD (PCP) Scribe Attestation Portions of this note were transcribed by Lg Simeon. I, Dr. Rojas personally performed the history, physical exam and medical decision-making; I reviewed and confirmed the accuracy of the information in the transcribed note. Signed by: David Pedraza, 12/17/16 copies to: Quentin Hunt MD, Timothy S DO Dec 17, 2016 07:45 LG SIMEON Dec 17, 2016 07:54
[2016-12-17 09:21] LABS: APPEARANCE,URINE HAZY (CLEAR,HAZY); COLOR,URINE DARK YELLOW (YELLOW)
[2016-12-17 09:22] LABS: OCCULT BLOOD,URINE NEGATIVE (NEGATIVE); UROBILINOGEN,URINE NORMAL (NORMAL)
[2016-12-17 09:55] VITALS: BP 132/74; PULSE 89; RESP 14; O2SAT 98
--- NOTE | 2016-12-17 16:55 | DRSVH ---
PROCEDURE: US RENAL SONOGRAM INDICATIONS: flank pain hematuria TECHNIQUE: Real-time scanning was performed of the kidneys and bladder, with image documentation. COMPARISON: None. FINDINGS: Kidneys: Kidneys are normal in size. Right kidney measures 13.2 cm long; left kidney measures 12.1 cm long. Right renal cortical thickness is 1.6 cm; left renal cortical thickness is 1.3 cm. Renal c ortical echotexture is normal. No hydronephrosis or nephrolithiasis. No suspicious solid mass lesio ns. Bladder: Pre-void bladder volume is 129 mL. Post-void residual cannot be assessed as the patient wa s unable to void. Pre-void images demonstrate no intraluminal masses or stones. On pre-void images, neither ureteral jets are noted with color Doppler interrogation. (Of note, ureteral jets may not b e detectable in up to 25% of cases due to insufficient differences in specific gravity between ureter al and bladder urine). Miscellaneous: No free pelvic fluid. IMPRESSION: Grossly normal kidneys. Dictated by: Pedro Mendoza [facility] Interpreted: Nikhil Salgado MD on 12/17/2016 at 13:00 Approved by: Nikhil Salgado M.D. on 12/17/2016 at 16:53
== END 2016-12-17 09:57 | disposition home or self-care (01) ==
LOC: SED 07:30
DX: R31.9 Hematuria, unspecified (principal); F17.200 Nicotine dependence, unspecified, uncomplicated